=== PATIENT | female | born 1985 | race Caucasian/White ===

== ENCOUNTER 2022-12-03 05:55 | Inpatient (IN) | payer BC ==
[2022-12-03] MEDS ORDERED: AMPICILLIN - 2 GM in SODIUM CHLORIDE 100 ML IVPB ONE (06:45)
[2022-12-03] MEDS ORDERED: ELECTROLYTE-148 SOLN 1,000 ML IV ONE (06:45)
[2022-12-03] MEDS ORDERED: BETAMET ACET/BETAMET NA PH 30 MG/5 ML VIAL IM ONE (06:45)
[2022-12-03] MEDS ORDERED: AMPICILLIN SODIUM 2 GM VIAL ONE (06:49)
[2022-12-03] MEDS ORDERED: BETAMET ACET/BETAMET NA PH 30 MG/5 ML VIAL ONE (06:52)
[2022-12-03 07:00] VITALS: BMI 30.7
[2022-12-03 07:02] LABS: BASO % 0.5 % (0-2.0); EOS % 0.8 % (0-4.5); HEMATOCRIT 32.4 % (32.4-45.2); HEMOGLOBIN 11.3 GM/dL (10.7-15.3); LYMPH % 24.9 % (8-40); MCH 31.9 pg (25.7-33.7); MCHC 34.8 g/dl (32.0-36.0); MEAN CELL VOLUME 91.7 fl (80-96); MEAN PLT VOLUME 7.6 fl (7.5-11.1); MONO % 7.7 % (3.8-10.2); NEUT % 66.1 % (42.8-82.8); PLATELET COUNT 249 10^3/uL (134-434); RBC 3.53 M/mm3 (3.60-5.2); RDW 12.7 % (11.6-15.6); WHITE BLOOD COUNT 9.7 K/mm3 (4.0-10.0)
[2022-12-03 07:09] LABS: INR 0.9 (0.83-1.09); PROTHROMBIN TIME (PATIENT) 10.5 SEC (9.7-13.0)
[2022-12-03 07:11] LABS: ACTIVATED PTT 26.8 SECONDS (25.2-36.5)
[2022-12-03] MEDS ORDERED: AMPICILLIN - 1 GM in SODIUM CHLORIDE 100 ML IVPB SCH (07:15)
[2022-12-03 07:19] LABS: POTASSIUM 4.2 mmol/L (3.5-5.1)
[2022-12-03 07:20] LABS: CALCIUM 8.7 mg/dL (8.5-10.1)
[2022-12-03 07:21] LABS: BLOOD UREA NITROGEN 13.6 mg/dL (7-18)
[2022-12-03 07:24] LABS: CREATININE 0.6 mg/dL (0.55-1.3)
[2022-12-03 09:59] LABS: HIV INTERPRETATION NEGATIVE (NEGATIVE)
[2022-12-03] MEDS: AMPICILLIN - 1 GM in SODIUM CHLORIDE 100 ML IVPB SCH ×5 (11:02→22:14)
[2022-12-03] MEDS ORDERED: PRENATAL VITAMINS W/ FOLIC ACID TABLET (FP) PO ONE (11:07)
[2022-12-03] MEDS ORDERED: AMPICILLIN SODIUM 1 GM VIAL ONE (11:07)
[2022-12-03] MEDS: PRENATAL VITAMINS W/ FOLIC ACID TABLET (FP) PO SCH (11:15)
[2022-12-03] MEDS: valACYclovir HCL 500 MG TABLET (FP) PO SCH ×2 (11:24→22:14)
[2022-12-03] MEDS ORDERED: AZITHROMYCIN 500 MG TABLET PO ONE (13:15)
[2022-12-04] MEDS: ELECTROLYTE-148 SOLN 1,000 ML IV SCH ×2 (01:23→11:44)
[2022-12-04] MEDS: AMPICILLIN - 1 GM in SODIUM CHLORIDE 100 ML IVPB SCH ×6 (02:20→21:49)
[2022-12-04] MEDS ORDERED: BETAMET ACET/BETAMET NA PH 30 MG/5 ML VIAL IM ONE (06:30)
[2022-12-04 09:13] LABS: BASO % 0.2 % (0-2.0); EOS % 0.1 % (0-4.5); HEMOGLOBIN 10.9 GM/dL (10.7-15.3); LYMPH % 16.2 % (8-40); MCHC 34.2 g/dl (32.0-36.0); MEAN CELL VOLUME 93.6 fl (80-96); MEAN PLT VOLUME 7.7 fl (7.5-11.1); MONO % 7.1 % (3.8-10.2); NEUT % 76.4 % (42.8-82.8); PLATELET COUNT 225 10^3/uL (134-434); RBC 3.42 M/mm3 (3.60-5.2); RDW 13.1 % (11.6-15.6); WHITE BLOOD COUNT 11.4 K/mm3 (4.0-10.0)
[2022-12-04 09:45] LABS: POTASSIUM 3.6 mmol/L (3.5-5.1)
[2022-12-04 09:55] LABS: CALCIUM 8.2 mg/dL (8.5-10.1)
[2022-12-04 09:56] LABS: ALBUMIN 2.5 g/dl (3.4-5.0); BLOOD UREA NITROGEN 8.9 mg/dL (7-18)
[2022-12-04 09:58] LABS: CREATININE 0.5 mg/dL (0.55-1.3)
[2022-12-04 10:00] LABS: BILIRUBIN,TOTAL 0.3 mg/dL (0.2-1); TOT PROT 5.7 g/dl (6.4-8.2)
[2022-12-04] MEDS ORDERED: PRENATAL VITAMINS W/ FOLIC ACID TABLET (FP) PO SCH (10:00)
[2022-12-04] MEDS: valACYclovir HCL 500 MG TABLET (FP) PO SCH ×2 (11:44→21:50)
[2022-12-04] MEDS: PRENATAL VITAMINS W/ FOLIC ACID TABLET (FP) PO SCH (11:44)
[2022-12-04 13:26] LABS: POC NITRAZINE POS
[2022-12-05] MEDS: AMPICILLIN - 1 GM in SODIUM CHLORIDE 100 ML IVPB SCH ×2 (03:00→06:13)
[2022-12-05] MEDS ORDERED: PRENATAL VITAMINS W/ FOLIC ACID TABLET (FP) PO ONE (10:04)
[2022-12-05] MEDS: PRENATAL VITAMINS W/ FOLIC ACID TABLET (FP) PO SCH (10:05)
[2022-12-05] MEDS: valACYclovir HCL 500 MG TABLET (FP) PO SCH ×2 (10:44→21:12)
[2022-12-05 10:47] LABS: BASO % 0.2 % (0-2.0); EOS % 0.1 % (0-4.5); HEMATOCRIT 30.4 % (32.4-45.2); HEMOGLOBIN 10.5 GM/dL (10.7-15.3); LYMPH % 18.4 % (8-40); MCHC 34.6 g/dl (32.0-36.0); MEAN CELL VOLUME 92.6 fl (80-96); MEAN PLT VOLUME 7.5 fl (7.5-11.1); MONO % 7.5 % (3.8-10.2); NEUT % 73.8 % (42.8-82.8); PLATELET COUNT 236 10^3/uL (134-434); RBC 3.28 M/mm3 (3.60-5.2); RDW 13.1 % (11.6-15.6); WHITE BLOOD COUNT 11.5 K/mm3 (4.0-10.0)
[2022-12-05] MEDS: ELECTROLYTE-148 SOLN 1,000 ML IV SCH (14:41)
[2022-12-06] MEDS ORDERED: PROMETHAZINE HCL 25 MG/1 ML VIAL IVPB ONE (01:37)
[2022-12-06] MEDS ORDERED: MEPERIDINE HCL 25 MG/ML VIAL IVPB ONE (01:37)
[2022-12-06] MEDS ORDERED: PROMETHAZINE HCL 25 MG/1 ML VIAL ONE (02:15)
[2022-12-06] MEDS ORDERED: MEPERIDINE HCL 25 MG/ML VIAL ONE (02:16)
[2022-12-06] MEDS ORDERED: LIDOCAINE HCL 1% PRESERVATIVE FREE - 30ML VIAL ONE (04:37)
[2022-12-06] MEDS ORDERED: OXYTOCIN 20 UNITS in 0.9% NS 20 UNIT/1,000 ML INFUS.BAG IV ONE (04:38)
[2022-12-06] MEDS ORDERED: WITCH HAZEL 50% (TUCKS) 40 PAD/JAR PAD TP PRN (05:37)
[2022-12-06] MEDS ORDERED: ACETAMINOPHEN 325 MG TABLET (FP) PO PRN (05:37)
[2022-12-06] MEDS ORDERED: BENZOCAINE 20% 57 GM BOTTLE TP PRN (05:37)
[2022-12-06] MEDS ORDERED: METHYLERGONOVINE MALEATE 0.2 MG/1 ML AMP IM PRN (05:37)
[2022-12-06] MEDS ORDERED: BISACODYL 10 MG SUPP.RECT RC PRN (05:37)
[2022-12-06] MEDS ORDERED: IBUPROFEN 600 MG TABLET (FP) PO PRN (05:37)
[2022-12-06] MEDS ORDERED: BENZOCAINE 28 GM HEMORRHOIDAL OINTMENT TP PRN (05:37)
[2022-12-06] MEDS ORDERED: OXYTOCIN 20 UNITS in 0.9% NS 20 UNIT/1,000 ML INFUS.BAG IV SCH (05:45)
[2022-12-06 06:47] LABS: CORD BASE EXCESS -2.8 mmol/L (0-2); CORD HCO3 22.8 mmHg (20-29); CORD PCO2 42.2 mmHg (30-78); CORD pH 7.35 (7.14-7.44)
[2022-12-06 06:47] LABS: CORD HCO3 27.1 mmHg (20-29); CORD PCO2 63.1 mmHg (30-78); CORD pH 7.251 (7.14-7.44)
[2022-12-06] MEDS: PRENATAL VITAMINS W/ FOLIC ACID TABLET (FP) PO SCH (09:38)
[2022-12-06] MEDS: valACYclovir HCL 500 MG TABLET (FP) PO SCH ×2 (09:38→22:15)
[2022-12-06 11:57] LABS: BASO % 0.3 % (0-2.0); EOS % 0.1 % (0-4.5); HEMATOCRIT 30.3 % (32.4-45.2); HEMOGLOBIN 10.3 GM/dL (10.7-15.3); LYMPH % 11.3 % (8-40); MCH 31.5 pg (25.7-33.7); MEAN CELL VOLUME 92.8 fl (80-96); MEAN PLT VOLUME 8.1 fl (7.5-11.1); NEUT % 79.3 % (42.8-82.8); PLATELET COUNT 229 10^3/uL (134-434); RBC 3.27 M/mm3 (3.60-5.2); RDW 13.1 % (11.6-15.6); WHITE BLOOD COUNT 15.6 K/mm3 (4.0-10.0)
[2022-12-07 08:47] LABS: BASO % 0.5 % (0-2.0); EOS % 1.1 % (0-4.5); HEMATOCRIT 32.4 % (32.4-45.2); LYMPH % 26.1 % (8-40); MEAN CELL VOLUME 93.8 fl (80-96); MEAN PLT VOLUME 7.6 fl (7.5-11.1); MONO % 6.9 % (3.8-10.2); NEUT % 65.4 % (42.8-82.8); PLATELET COUNT 228 10^3/uL (134-434); RBC 3.45 M/mm3 (3.60-5.2); WHITE BLOOD COUNT 13.8 K/mm3 (4.0-10.0)
[2022-12-07] MEDS: PRENATAL VITAMINS W/ FOLIC ACID TABLET (FP) PO SCH (10:09)
[2022-12-07] MEDS: valACYclovir HCL 500 MG TABLET (FP) PO SCH ×2 (10:09→22:33)
[2022-12-07] MEDS ORDERED: SENNOSIDES/DOCUSATE COMBO (SENNA PLUS) TABLET (UD) PO PRN (22:00)
[2022-12-08 10:55] VITALS: BP 128/78; PULSE 90; RESP 16; TEMP 97.7
[2022-12-08] MEDS: valACYclovir HCL 500 MG TABLET (FP) PO SCH (11:15)
[2022-12-08] MEDS: PRENATAL VITAMINS W/ FOLIC ACID TABLET (FP) PO SCH (11:15)
== END 2022-12-08 19:42 | disposition home or self-care (01) | DRG 807 ==
LOC: JLDR 05:55 → J3W 13:10 → JLDR 12-05 06:40 → J3W 12-05 14:30 → JLDR 12-06 00:52 → J3W 12-06 07:55
PROVIDERS: ADMIT Obstetrics & Gynecology; ATTEND Obstetrics & Gynecology
PROC: 10E0XZZ Delivery of Products of Conception, External Approach (ICD-10-PCS; principal; 2022-12-06)
PROC: 0W8NXZZ Division of Female Perineum, External Approach (ICD-10-PCS; 2022-12-06)
PROC: 0HQ9XZZ Repair Perineum Skin, External Approach (ICD-10-PCS; 2022-12-06)
DX: O42.113 Preterm premature rupture of membranes, onset of labor more than 24 hours following rupture, third trimester (principal); Z37.0 Single live birth; O70.0 First degree perineal laceration during delivery; O69.81X0 Labor and delivery complicated by cord around neck, without compression, not applicable or unspecified; Z3A.35 35 weeks gestation of pregnancy
CPT/HCPCS: 36415; 36600; 80048; 80053; 82803; 83986-QW; 85025; 85610; 85730; 86780; 86850; 86900; 86901; 87081; 87389; 96372